=== PATIENT | female | born 1960 | race Caucasian/White ===

== ENCOUNTER 2019-03-26 13:10 | Emergency (ER) | payer OTHER ==
[2019-03-26] MEDS ORDERED: CEPHALEXIN 500 MG CAPSULE ONE (13:39)
[2019-03-26] MEDS ORDERED: AZITHROMYCIN 250 MG TABLET PO ONE (13:40)
== END 2019-03-26 14:15 | disposition home or self-care (01) ==
LOC: EDH 13:10
DX: L03.113 Cellulitis of right upper limb (principal); Z87.891 Personal history of nicotine dependence; Z88.0 Allergy status to penicillin; Z88.6 Allergy status to analgesic agent; Z91.040 Latex allergy status